=== PATIENT | female | born 1995 | race Two or more races ===

== ENCOUNTER 2019-04-07 23:19 | Emergency (ER) | payer OTHER ==
[~2019-04-07] VITALS: Ht 162.6 cm; Wt 86.2 kg
[2019-04-08 00:35] VITALS: BP 138/84
== END 2019-04-08 00:36 ==
LOC: ER 23:19
DX: F10.129 Alcohol abuse with intoxication, unspecified (principal); F41.9 Anxiety disorder, unspecified; Y90.9 Presence of alcohol in blood, level not specified
CPT/HCPCS: 99283; A6402; A6403